=== PATIENT | female | born 1970 | race Two or more races ===

== ENCOUNTER 2017-10-31 20:37 | Emergency (ER) | payer BC ==
[2017-10-31 20:54] VITALS: BP 115/63
--- NOTE | 2017-10-31 21:23 | EDM.PDOC ---
ED HPI GENERAL MEDICAL PROBLEM - General Chief Complaint: General Stated Complaint: shaky, cold, thirsty Time Seen by Provider: 10/31/17 21:02 Source of Information: Reports: Patient, Family, RN, RN Notes Reviewed History Limitations: Reports: No Limitations - History of Present Illness INITIAL COMMENTS - FREE TEXT/NARRATIVE: Patient presents the emergency room at [facility] with multiple complaints. The patient states that she feels shaky. The patient is complaining of left calf pain that started somewhat last night but more so today. The patient does have a history of blood clots and was on Coumadin in the past. The patient was recently switched over to Xarelto a couple of weeks ago. The patient also has an IVC filter in. The patient also complains of left sided chest pain. This pain started yesterday. It is a vague sensation. The patient is unable to quantify the pain. The patient states that she feels short of breath. The patient denies any nausea vomiting or diarrhea. The patient denies any focal neurological deficit. The patient's complaints are very vague and it is hard to discern exactly what her presenting issues are. The patient also states she feels very tired. The patient states she has a blurry vision that started earlier today. Onset: Gradual - Related Data Allergies Allergy/AdvReac Type Severity Reaction Status Date / Time No Known Allergies Allergy Verified 10/31/17 20:44 Home Meds: Home Meds Acetaminophen with Codeine [Acetaminophen-Cod #4] 1 - 2 tab PO Q6H PRN 10/31/17 [History] Albuterol [Proventil] 2 puff INH Q4H PRN 10/31/17 [History] ClonazePAM [KlonoPIN] 1 tab PO BID PRN 10/31/17 [History] Cyclobenzaprine [Flexeril] 10 mg PO TID PRN 10/31/17 [History] Escitalopram [Lexapro] 20 mg PO DAILY 10/31/17 [History] Etonogestrel [Nexplanon] 68 mg SQ ASDIRECTED 10/31/17 [History] Fluticasone/Salmeterol [Advair 250-50 Diskus] 1 puff INH DAILY PRN 10/31/17 [ History] Levothyroxine 150 mcg PO DAILY 10/31/17 [History] Lidocaine 5% [Lidoderm 5%] 1 patch TOP ASDIRECTED 10/31/17 [History] Phentermine HCl 1 tab PO DAILY 10/31/17 [History] Rivaroxaban [Xarelto] 20 mg PO DAILY 10/31/17 [History] Topiramate [Topiramate] 1 tab PO DAILY 10/31/17 [History] metFORMIN HCl [Metformin HCl] 1,000 mg PO BID 10/31/17 [History] Past Medical History Respiratory History: Reports: PE Psychiatric History: Reports: Anxiety, Depression Endocrine/Metabolic History: Reports: Diabetes, Type II, Other (See Below) Other Endocrine/Metabolic History: history of DM type II Hematologic History: Reports: Other (See Below) Other Hematologic History: DVT - Past Surgical History GI Surgical History: Reports: Cholecystectomy Female Surgical History: Reports: Section Musculoskeletal Surgical History: Reports: Knee Replacement Social & Family History - Tobacco Use Smoking Status *Q: Never Smoker - Recreational Drug Use Recreational Drug Use: No ED ROS GENERAL - Review of Systems Review Of Systems: See Below Constitutional: Reports: Chills, Fatigue. Denies: Fever, Weakness Respiratory: Reports: Shortness of Breath. Denies: Wheezing, Cough Cardiovascular: Reports: Chest Pain. Denies: Lightheadedness, Palpitations GI/Abdominal: Denies: Abdominal Pain, Nausea, Vomiting Musculoskeletal: Reports: Other (Left calf pain) Skin: Reports: No Symptoms Neurological: Reports: Weakness, Other (shaky) ED EXAM, GENERAL - Physical Exam Exam: See Below Exam Limited By: No Limitations General Appearance: Alert, No Apparent Distress, Lethargic Neck: Supple Respiratory/Chest: No Respiratory Distress, Lungs Clear, Normal Breath Sounds Cardiovascular: Normal Peripheral Pulses, Regular Rate, Rhythm, No Edema, Other (Left calf exam does not reveal an pain on assessment, no swelling of left calf , pulses normal; skin normal) Peripheral Pulses: 2+: Posterior Tibial (L), Posterior Tibial (R), Dorsalis Pedis (L), Dorsalis Pedis (R) GI/Abdominal: Soft, Non-Tender, Abnormal Bowel Sounds (Hypoactive) Extremities: Normal Inspection, No Pedal Edema, Normal Capillary Refill. No: Lambert's Sign, Increased Warmth, Pallor, Redness Neurological: Alert, Oriented Skin Exam: Warm, Dry, Intact, Normal Color, No Rash EKG INTERPRETATION EKG Date: 10/31/17 Time: 21:50 Rhythm: NSR Rate (Beats/Min): 67 [place]: Normal P-Wave: Present QRS: Normal ST-T: Normal QT: Normal [place]/PQ Interval: 0.16 Comparison: No Change EKG Interpretation Comments: 1. Sinus Rhythm 2. Normal ECG Course - Vital Signs Last Recorded V/S: Last Vital Signs Temp 36.6 C 10/31/17 20:48 Pulse 76 10/31/17 20:48 Resp 20 10/31/17 20:48 BP 115/63 10/31/17 20:48 Pulse Ox 99 10/31/17 20:48 - Orders/Labs/Meds Orders: Active Orders 24 hr Category Date Time Status EKG 12 Lead [EKG Documentation Completion] [RC] STAT Care 10/31/17 21:26 Active CTA Chest W WO Contrast [Ang Chest] [CT] Stat Exams 10/31/17 21:34 Taken DRUG SCREEN, URINE [URCHEM] Stat Lab 10/31/17 22:47 Ordered UA W/MICROSCOPIC [URIN] Stat Lab 10/31/17 22:47 Ordered UA W/O MICR POC [POC] Stat Lab 10/31/17 22:46 Ordered URINE DRUG SCREEN,POC [POC] Stat Lab 10/31/17 22:46 Ordered Sodium Chloride 0.9% [Saline Flush] Med 10/31/17 21:34 Active 10 ml FLUSH ASDIRECTED PRN Peripheral IV Insertion Adult [OM.PC] Routine Oth 10/31/17 21:34 Ordered Medication Orders Sodium Chloride (Saline Flush) 10 ml FLUSH ASDIRECTED PRN PRN Reason: Keep Vein Open Labs: Laboratory Tests 10/31/17 10/31/17 10/31/17 Range/Units 21:45 21:45 21:45 WBC 8.5 (4.0-10.0) x10^3/uL RBC 3.97 L (4.00-5.50) x10^6/uL Hgb 11.7 L (12.0-16.0) g/dL Hct 34.2 (33.0-47.0) % MCV 86.1 (78.0-93.0) fL MCH 29.5 (26.0-32.0) pg MCHC 34.2 (32.0-36.0) g/dL RDW Coeff of Jean [place] 13.7 (10.0-15.0) % Plt Count 204 (130-400) x10^3/uL Neut % (Auto) 80.4 H (50.0-80.0) % Lymph % (Auto) 13.5 L (25.0-50.0) % [place] % (Auto) 4.8 (2.0-11.0) % Eos % (Auto) 0.9 (0.0-4.0) % Baso % (Auto) 0.4 (0.2-1.2) % PT 15.4 H (9.8-11.8) SEC INR 1.5 L (2.0-3.5) D-Dimer, Quantitative 0.29 (<=0.58) mg/LFEU Sodium 140 (136-145) mmol/L Potassium 3.8 (3.5-5.1) mmol/L Chloride 106 (98-107) mmol/L Carbon Dioxide 24 (21-32) mmol/L BUN 23 H (7-18) mg/dL Creatinine 1.1 H (0.55-1.02) mg/dL Est Cr Clr Drug Dosing 54.01 mL/min Estimated GFR (MDRD) 53 Glucose 130 H (74-106) mg/dL Lactic Acid (0.4-2.0) mmol/L Calcium 8.7 (8.5-10.1) mg/dL Corrected Calcium 9.26 (8.5-10.1) mg/dL Magnesium 1.8 (1.8-2.4) mg/dL Total Bilirubin 0.4 (0.2-1.0) mg/dL AST 16 (15-37) U/L ALT 15 (14-59) U/L Alkaline Phosphatase 85 (46-116) U/L Creatine Kinase 82 (26-192) U/L Troponin I < 0.017 (<=0.056) ng/mL C-Reactive Protein 0.8 (<=0.9) mg/dL Total Protein 7.3 (6.4-8.2) g/dL Albumin 3.3 L (3.4-5.0) g/dL Globulin 4.0 Albumin/Globulin Ratio 0.83 TSH, Ultra Sensitive 2.462 (0.358-3.74) uIU/mL 10/31/17 Range/Units 21:45 WBC (4.0-10.0) x10^3/uL RBC (4.00-5.50) x10^6/uL Hgb (12.0-16.0) g/dL Hct (33.0-47.0) % MCV (78.0-93.0) fL MCH (26.0-32.0) pg MCHC (32.0-36.0) g/dL RDW Coeff of Jean [place] (10.0-15.0) % Plt Count (130-400) x10^3/uL Neut % (Auto) (50.0-80.0) % Lymph % (Auto) (25.0-50.0) % [place] % (Auto) (2.0-11.0) % Eos % (Auto) (0.0-4.0) % Baso % (Auto) (0.2-1.2) % PT (9.8-11.8) SEC INR (2.0-3.5) D-Dimer, Quantitative (<=0.58) mg/LFEU Sodium (136-145) mmol/L Potassium (3.5-5.1) mmol/L Chloride (98-107) mmol/L Carbon Dioxide (21-32) mmol/L BUN (7-18) mg/dL Creatinine (0.55-1.02) mg/dL Est Cr Clr Drug Dosing mL/min Estimated GFR (MDRD) Glucose (74-106) mg/dL Lactic Acid 1.4 (0.4-2.0) mmol/L Calcium (8.5-10.1) mg/dL Corrected Calcium (8.5-10.1) mg/dL Magnesium (1.8-2.4) mg/dL Total Bilirubin (0.2-1.0) mg/dL AST (15-37) U/L ALT (14-59) U/L Alkaline Phosphatase (46-116) U/L Creatine Kinase (26-192) U/L Troponin I (<=0.056) ng/mL C-Reactive Protein (<=0.9) mg/dL Total Protein (6.4-8.2) g/dL Albumin (3.4-5.0) g/dL Globulin Albumin/Globulin Ratio TSH, Ultra Sensitive (0.358-3.74) uIU/mL Meds: Medications Generic Name Dose Route Start Last Admin Trade Name Freq PRN Reason Stop Dose Admin Sodium Chloride 10 ml 10/31/17 21:34 Saline Flush FLUSH ASDIRECTED PRN Keep Vein Open Discontinued Medications Generic Name Dose Route Start Last Admin Trade Name Freq PRN Reason Stop Dose Admin Iopamidol 100 ml 10/31/17 21:53 10/31/17 22:20 Isovue-300 (61%) IVPUSH 10/31/17 21:54 100 ml ONETIME ONE Administration - Radiology Interpretation Free Text/Narrative:: CTA Chest PE Protocol: No evidence of acute pulmonary embolism; No acute findings See scanned report in EMR CT Results Date: 10/31/17 CT Results Time: 22:47 Departure - Departure Time of Disposition: 22:57 Disposition: Home, Self-Care 01 Condition: Good Clinical Impression: Atypical chest pain, Pain of left calf, Dehydration - Discharge Information Instructions: Nonspecific Chest Pain, Dehydration, Adult Referrals: Linda Bennett [facility] [Primary Care Provider] - Forms: ED Department Discharge Additional Instructions: 1. Stay well hydrated and rest 2. All blood work and CAT scan were normal, no emergencies found 3. Continue all home medications the same 4. Follow up with your Primary as symptoms warrant 5. Call with any questions/concerns - Problem List Review Problem List Initiated/Reviewed/Updated: Yes - My Orders Last 24 Hours: My Active Orders 10/31/17 21:26 EKG 12 Lead [EKG Documentation Completion] [RC] STAT 10/31/17 21:34 CTA Chest W WO Contrast [Ang Chest] [CT] Stat Sodium Chloride 0.9% [Saline Flush] 10 ml FLUSH ASDIRECTED PRN Peripheral IV Insertion Adult [OM.PC] Routine 10/31/17 22:46 UA W/O MICR POC [POC] Stat URINE DRUG SCREEN,POC [POC] Stat 10/31/17 22:47 DRUG SCREEN, URINE [URCHEM] Stat UA W/MICROSCOPIC [URIN] Stat - Assessment/Plan Last 24 Hours: My Active Orders 10/31/17 21:26 EKG 12 Lead [EKG Documentation Completion] [RC] STAT 10/31/17 21:34 CTA Chest W WO Contrast [Ang Chest] [CT] Stat Sodium Chloride 0.9% [Saline Flush] 10 ml FLUSH ASDIRECTED PRN Peripheral IV Insertion Adult [OM.PC] Routine 10/31/17 22:46 UA W/O MICR POC [POC] Stat URINE DRUG SCREEN,POC [POC] Stat 10/31/17 22:47 DRUG SCREEN, URINE [URCHEM] Stat UA W/MICROSCOPIC [URIN] Stat Plan: Patient will be discharge home. No evidence of PE. Low probability of DVT left calf given normal D-Dimer and on Xarelto. No cardiac involvement with normal ECG and labs. No acute infection. Urines studies normal. Some slight dehydration with mild elevation of BUN/Creat but this could also be from co- morbid issues.
[2017-10-31] MEDS ORDERED: Sodium Chloride 0.9% 10 ML Syringe FLUSH PRN (21:34)
[2017-10-31] MEDS: Iopamidol 612 MG/ML 100 ML Bottle IVPUSH ONE (22:20)
[2017-10-31 22:28] LABS: CHLORIDE,CL 106 mmol/L (98-107); SODIUM,NA 140 mmol/L (136-145)
== END 2017-10-31 23:10 | disposition home or self-care (01) ==
LOC: VM.ED 20:37
DX: M79.662 Pain in left lower leg (principal); E86.0 Dehydration; R07.89 Other chest pain; Z79.899 Other long term (current) drug therapy
CPT/HCPCS: 36415; 71275; 80053; 80305; 81002; 82550; 83605; 83735; 84443; 84484; 85025; 85379; 85610; 86140; 93005; 99285; Q9967

== ENCOUNTER 2017-12-21 10:26 | Emergency (ER) | payer BC ==
[2017-12-21] MEDS ORDERED: Lidocaine 2% with EPINEPHrine 1:100,000 20 ML MDV INJECT ONE (10:38)
[2017-12-21] MEDS ORDERED: Diphtheria,Pertussis(Acell),Tetanus Vaccine 0.5 ML Syringe IM ONE (10:58)
--- NOTE | 2017-12-21 10:58 | EDM.PDOC ---
ED HPI GENERAL MEDICAL PROBLEM - General Chief Complaint: Skin Complaint Stated Complaint: LACERATION TO HEAD Time Seen by Provider: 12/21/17 10:36 Source of Information: Reports: Patient History Limitations: Reports: No Limitations - History of Present Illness INITIAL COMMENTS - FREE TEXT/NARRATIVE: Patient was bending down to feed her cat when she lost her balance and fell into the handle of her dresser. She does take xarelto and has a ivc filter for factor V [place]. She has no other complaints today. Her vision is normal, no headache, no dizziness. Her gait and speech are normal. She did apply pressure immediately after her injury. Onset: Today, Sudden Associated Symptoms: Reports: No Other Symptoms - Related Data Allergies Allergy/AdvReac Type Severity Reaction Status Date / Time No Known Allergies Allergy Verified 10/31/17 20:44 Home Meds: Home Meds Acetaminophen with Codeine [Acetaminophen-Cod #4] 1 - 2 tab PO Q6H PRN 10/31/17 [History] Albuterol [Proventil] 2 puff INH Q4H PRN 10/31/17 [History] ClonazePAM [KlonoPIN] 1 tab PO BID PRN 10/31/17 [History] Cyclobenzaprine [Flexeril] 10 mg PO TID PRN 10/31/17 [History] Escitalopram [Lexapro] 20 mg PO DAILY 10/31/17 [History] Etonogestrel [Nexplanon] 68 mg SQ ASDIRECTED 10/31/17 [History] Fluticasone/Salmeterol [Advair 250-50 Diskus] 1 puff INH DAILY PRN 10/31/17 [ History] Levothyroxine 150 mcg PO DAILY 10/31/17 [History] Lidocaine 5% [Lidoderm 5%] 1 patch TOP ASDIRECTED 10/31/17 [History] Phentermine HCl 1 tab PO DAILY 10/31/17 [History] Rivaroxaban [Xarelto] 20 mg PO DAILY 10/31/17 [History] Topiramate 1 tab PO DAILY 10/31/17 [History] metFORMIN HCl [Metformin HCl] 1,000 mg PO BID 10/31/17 [History] Past Medical History Respiratory History: Reports: PE Psychiatric History: Reports: Anxiety, Depression Endocrine/Metabolic History: Reports: Diabetes, Type II, Other (See Below) Other Endocrine/Metabolic History: history of DM type II Hematologic History: Reports: Other (See Below) Other Hematologic History: DVT - Past Surgical History GI Surgical History: Reports: Cholecystectomy Female Surgical History: Reports: Section Musculoskeletal Surgical History: Reports: Knee Replacement Social & Family History - Tobacco Use Smoking Status *Q: Never Smoker - Recreational Drug Use Recreational Drug Use: No ED ROS GENERAL - Review of Systems Review Of Systems: See Below Constitutional: Reports: No Symptoms HEENT: Reports: No Symptoms Respiratory: Reports: No Symptoms Cardiovascular: Reports: No Symptoms Endocrine: Reports: No Symptoms GI/Abdominal: Reports: No Symptoms : Reports: No Symptoms Musculoskeletal: Reports: No Symptoms Skin: Reports: Wound Neurological: Reports: No Symptoms Psychiatric: Reports: No Symptoms Hematologic/Lymphatic: Reports: No Symptoms Immunologic: Reports: No Symptoms ED EXAM, SKIN/RASH Exam: See Below Exam Limited By: No Limitations General Appearance: Alert, WD/WN, No Apparent Distress Eye Exam: Bilateral Eye: EOMI, Normal Inspection, PERRL Ears: Normal External Exam, Normal Canal, Hearing Grossly Normal, Normal TMs Head: Other (laceration to top of head) Neck: Normal Inspection, Supple, Non-Tender, Full Range of Motion Respiratory/Chest: No Respiratory Distress, Lungs Clear, Normal Breath Sounds, No Accessory Muscle Use, Chest Non-Tender Cardiovascular: Normal Peripheral Pulses, Regular Rate, Rhythm, No Edema, No Gallop, No JVD, No Murmur, No Rub GI/Abdominal: Normal Bowel Sounds, Soft, Non-Tender, No Organomegaly, No Distention, No Abnormal Bruit, No Mass Neurological: Alert, Oriented, CN II-XII Intact, Normal Cognition, Normal Gait, Normal Reflexes, No Motor/Sensory Deficits Skin: Wound/Incision (2.5 cm linear laceration to right lateral parietal area of the scalp) Location, Skin: Head ED SKIN PROCEDURES - Laceration/Wound Repair Right Upper Sides of Head Lac/Wound length In cm: 2.5 Appearance: Linear Distal NVT: Neuro & Vascular Intact Anesthetic Type: Local Local Anesthesia - Lidocaine (Xylocaine): 2% with EPI Local Anesthetic Volume: 3cc Skin Prep: Chlorhexidine (Hibiciens) Exploration/Debridement/Repair: Wound Explored, In a Bloodless Field, Explored to Base, No Foreign Material Found Closed with: [place] (8) Drain Placement: No Sterile Dressing Applied: None Tetanus Status Addressed: Yes Complications: No Course - Orders/Labs/Meds Meds: Medications Discontinued Medications Generic Name Dose Route Start Last Admin Trade Name Maura PRN Reason Stop Dose Admin Lidocaine/Epinephrine 20 ml 12/21/17 10:38 12/21/17 10:44 Xylocaine 2% With Epinephrine 1:100,000 INJECT 12/21/17 10:39 20 ml ONETIME ONE Administration Departure - Departure Time of Disposition: 10:51 Disposition: Home, Self-Care 01 Condition: Good Clinical Impression: Laceration of head - Discharge Information Instructions: Laceration Care, Adult, [id number], Wound Infection, Easy-to- Read Forms: ED Department Discharge Additional Instructions: Please see in the clinic in 7 days for staple removal. I did place 8 of them. If you develop any severe headaches, confusion, vision problems, confused speech , then present right away for a head CT. Your neurologic exam was normal so I did not scan your head. Please call us with any questions or concerns. - Problem List & Annotations (1) Laceration of head SNOMED Code(s): 315137082 Code(s): S01.91XA - LACERATION W/O FOREIGN BODY OF UNSP PART OF HEAD, INIT Status: Acute Priority: Low Qualifiers: Encounter type: initial encounter Foreign body presence: without foreign body Laterality: right - Problem List Review Problem List Initiated/Reviewed/Updated: Yes - Assessment/Plan Assessment:: right parietal head laceration Plan: Please see in the clinic in 7 days for staple removal. I did place 8 of them. If you develop any severe headaches, confusion, vision problems, confused speech , then present right away for a head CT. Your neurologic exam was normal so I did not scan your head. Please call us with any questions or concerns.
[2017-12-21 11:56] VITALS: BP 107/71
== END 2017-12-21 11:15 | disposition home or self-care (01) ==
LOC: VM.ED 10:26
DX: S01.01XA Laceration without foreign body of scalp, initial encounter (principal); E11.9 Type 2 diabetes mellitus without complications; F41.9 Anxiety disorder, unspecified; F32.9 Major depressive disorder, single episode, unspecified; Z79.84 Long term (current) use of oral hypoglycemic drugs; Z79.899 Other long term (current) drug therapy; Z23 Encounter for immunization; W01.190A Fall on same level from slipping, tripping and stumbling with subsequent striking against furniture, initial encounter
CPT/HCPCS: 12001; 90471; 90715; 99283